=== PATIENT | male | born 1970 | race Caucasian/White ===

== ENCOUNTER 2019-09-01 08:23 | Inpatient (IN) | payer OTHER ==
[~2019-09-01] VITALS: Ht 172.7 cm; Wt 99.8 kg
[2019-09-06] MEDS ORDERED: TERBINAFINE HC250 MG PO (15:55)
== END 2019-09-09 16:12 | disposition designated cancer center or children's hospital (05) | DRG 372 ==
LOC: ER 08:23 → SEC-K 09-02 06:53 → SURG 09-02 06:53
PROVIDERS: ADMIT Surgery
PROC: 02HV33Z Insertion of Infusion Device into Superior Vena Cava, Percutaneous Approach (ICD-10-PCS; 2019-09-02)
PROC: 3E0436Z Introduction of Nutritional Substance into Central Vein, Percutaneous Approach (ICD-10-PCS; 2019-09-02)
PROC: BW21Y0Z Computerized Tomography (CT Scan) of Abdomen and Pelvis using Other Contrast, Unenhanced and Enhanced (ICD-10-PCS; principal; 2019-09-06)
DX: K35.33 Acute appendicitis with perforation, localized peritonitis, and gangrene, with abscess (principal); K50.00 Crohn's disease of small intestine without complications; E44.0 Moderate protein-calorie malnutrition; R31.0 Gross hematuria